=== PATIENT | female | born 1995 | race African-American/Black ===

== ENCOUNTER 2022-09-30 04:00 | Emergency (ER) | payer MEDICAID ==
[~2022-09-30] VITALS: Ht 162.6 cm; Wt 70.0 kg
[2022-09-30 04:12] VITALS: BP 114/76
[2022-09-30 06:36] LABS: CLARITY URINE CLEAR (CLEAR); COLOR URINE DARK YELLOW (YELLOW); KETONES URINE TRACE (NEGATIVE); LEUKOCYTE ESTERASE URINE TRACE (NEGATIVE); NITRITE URINE NEGATIVE (NEGATIVE); OCCULT BLOOD URINE NEGATIVE (NEGATIVE); PROTEIN URINE TRACE (NEGATIVE); SPECIFIC GRAVITY URINE 1.032 (1.005-1.030)
== END 2022-09-30 07:00 | disposition left against medical advice (07) ==
LOC: ER 04:00
DX: N89.8 Other specified noninflammatory disorders of vagina (principal)
CPT/HCPCS: 81003; 81025; 99283

== ENCOUNTER 2024-03-12 17:40 | Emergency (ER) | payer MEDICAID ==
[~2024-03-12] VITALS: Ht 167.6 cm; Wt 80.0 kg
[2024-03-12 17:43] VITALS: O2SAT 99
[2024-03-12] MEDS: ONDANSETRON 4MG ODT PO ONE (18:31)
[2024-03-12] MEDS: ASPIRIN 325MG TABLET PO ONE (18:31)
[2024-03-12 18:52] LABS: BASOPHILS % 0.8 % (0.0-2.0); EOSINOPHILS % 2.9 % (0.0-5.0); HEMATOCRIT. 38.3 % (36.0-48.0); HEMOGLOBIN. 12.4 g/dL (12.0-16.0); LYMPHOCYTES % 45.4 % (20.0-50.0); MEAN CORPUSCULAR HEMOGLOBIN 26.1 pg (28.0-32.0); MEAN CORPUSCULAR HGB CONC 32.4 g/dL (31.0-37.0); MEAN CORPUSCULAR VOLUME 80.6 fL (81.0-99.0); MEAN PLATELET VOLUME 7.5 fl (7.4-10.4); NEUTROPHILS % 44.9 % (40.0-76.0); PLATELET 272 x1000/uL (130-400); RED BLOOD CELL COUNT 4.75 mill/uL (4.2-5.4); RED CELL DISTRIBUTION WIDTH 14.5 % (11.6-14.6); WHITE BLOOD COUNT 6.5 x1000/uL (4.5-11.0)
[2024-03-12 18:59] LABS: CHLORIDE 107 mEq/L (98-107); POTASSIUM 4.4 mEq/L (3.5-5.1); SODIUM 138 mEq/L (136-145)
[2024-03-12 19:00] LABS: CARBON DIOXIDE 25 mEq/L (21-32)
[2024-03-12 19:01] LABS: CALCIUM 9.2 mg/dL (8.7-10.4)
[2024-03-12 19:05] LABS: CREATININE 0.9 mg/dL (0.6-1.0); GLUCOSE 102 mg/dL (70-105); UREA NITROGEN BLOOD 15 mg/dL (9-23)
[2024-03-12 19:10] LABS: TROPONIN I HIGH SENSITIVITY < 4 ng/L (3.0-34)
[2024-03-12 19:38] LABS: HCG SCREEN NEGATIVE
[2024-03-12 20:34] VITALS: BP 138/70; PULSE 77; RESP 16; TEMP 98.6
== END 2024-03-12 20:47 | disposition home or self-care (01) ==
LOC: ER 17:40
DX: R07.89 Other chest pain (principal); F41.9 Anxiety disorder, unspecified; F32.A Depression, unspecified
CPT/HCPCS: 99285; 71045; 80048; 84703; 83880; 85025; 85379; 84484; 36415; 93005; Q0162